=== PATIENT | male | born 1935 | race Caucasian/White ===

== ENCOUNTER 2017-01-03 01:52 | Outpatient (CLI) | payer MEDICARE | END 2017-01-03 01:53 | disposition critical access hospital (66) | LOC: EMS 01:52 | PROVIDERS: ATTEND Surgery | DX: R56.9 Unspecified convulsions (principal) | CPT/HCPCS: A0425; A0427 ==

== ENCOUNTER 2017-01-03 02:15 | Emergency (ER) | payer MEDICARE ==
[2017-01-03] MEDS ORDERED: levETIRAcetam INJ 1,000 MG in SODIUM CHLORIDE 0.9% 100ML 100 ML IV STA (02:50)
[2017-01-03 02:59] LABS: BASOPHILS # (AUTO) 0.1 10^3/uL (0.0-0.1); BASOPHILS % (AUTO) 0.8 %; EOSINOPHILS # (AUTO) 0.3 10^3/uL (0.0-0.7); EOSINOPHILS % (AUTO) 3.5 %; HCT - HEMATOCRIT 37.3 % (42.0-52.0); HGB - HEMOGLOBIN 12.7 g/dL (14.0-18.0); LYMPHOCYTES % (AUTO) 20.2 %; MEAN CORPUSCULAR HEMOGLOBIN 30.4 pg (27.0-31.0); MEAN CORPUSCULAR VOLUME 89.6 fL (80.0-94.0); MONOCYTES # (AUTO) 0.7 10^3/uL (0.0-1.0); NEUTROPHILS # (AUTO) 6.9 10^3/uL (1.5-6.6); NEUTROPHILS % (AUTO) 68.5 %; RED BLOOD COUNT 4.16 10^6/uL (4.70-6.10); RED CELL DISTRIBUTION WIDTH 13.4 % (12.0-15.0); UNCORRECTED WHITE BLOOD COUNT 10.1 x10^3/uL; WHITE BLOOD COUNT 10.1 x10^3/uL (4.8-10.8)
[2017-01-03 03:13] LABS: ALBUMIN/GLOBULIN RATIO 1.3 (1.0-2.2); BILIRUBIN,TOTAL 0.3 mg/dL (0.2-1.0); CREATININE 1.7 mg/dL (0.6-1.2); POTASSIUM 3.9 mmol/L (3.5-5.0); TOTAL PROTEIN 6.6 g/dL (6.7-8.2)
--- NOTE | 2017-01-03 04:01 | CT Preliminary Report ---
Exam: CT Head W/O IMPRESSION: 1. No acute intracranial process. 2. 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 [facility] SITE ID: [id number]
--- NOTE | 2017-01-03 04:04 | CT Report ---
EXAM: CT HEAD EXAM DATE: 01/03/2017 03:48 AM. CLINICAL HISTORY: Breakthrough seizures, history of traumatic brain injury. COMPARISON: None. TECHNIQUE: Multiaxial CT images were obtained from the foramen magnum to the vertex. IV contrast: Non e. Reformats: Coronal. In accordance with CT protocol optimization, one or more of the following dose reduction techniques w ere utilized for this exam: automated exposure control, adjustment of mA and/or KV based on patient s ize, or use of iterative reconstructive technique. FINDINGS: Parenchyma: Anterior left temporal encephalomalacia is present, likely reflecting sequelae from prior trauma. No intraparenchymal hemorrhage. No evidence of mass, midline shift, or CT findings of acute infarction. Mares-white differentiation is distinct elsewhere in the brain. Extraaxial Spaces: No acute subdural or epidural collections identified. Ventricles: The ventricles and cortical sulci are mildly enlarged, consistent with age-related tissue loss. Sinuses: Post surgical changes from cataract extractions are noted in the globes. The paranasal and m astoid sinuses are unremarkable. Bones: Left-sided craniotomy changes are noted. Other: Mild intracranial atherosclerosis is noted. IMPRESSION: 1. No acute intracranial process. 2. 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 [facility] Referring Provider Line: [phone] SITE ID: [id number]
--- NOTE | 2017-01-03 04:23 | ED Physician Documentation ---
PD HPI SEIZURE - Stated complaint Stated Complaint: SZ - Chief complaint Chief Complaint: Neuro - History obtained from History obtained from: Patient, Family, EMS - History of Present Illness Timing - onset: Today Witnessed: Witnessed Number of seizures: Single, Lasted minutes (10-15) Description of seizure activity: Generalized, Tonic clonic Injury during seizure: Bit tongue History of seizures: Known seizure disorder, Prior TBI Contributing factors: Changed meds Treatment [employer]: Valium Similar symptoms before: Work up / diagnostics, Treatment Recently seen: Not recently seen - Additional information Additional information: Patient is an 81 year old male with a history of seizure disorder and tbi who is presenting to the emergency department for seizures. According to patient and family patient had been on keppra 500mg bid, but since he had not had a seizure in a while they had been decreasing his dose to sometime 1 pill a day, sometime half pill. patient had a seizure this evening when he wouldn't wear his cpap. patient was post ictal after the seizure patient bit his tongue and did have urinary incontinence. Patient was treated with valium by ems. Upon initial evaluation in the emergency department patient was awake and alert, slightly post ictal but denying any complaints. Review of Systems Constitutional: denies: Fever, Chills Eyes: denies: Loss of vision, Photophobia Ears: denies: Ear pain, Drainage/discharge Nose: denies: Rhinorrhea / runny nose, Congestion Throat: denies: Dental pain / toothache, Sore throat Cardiac: denies: Chest pain / pressure GI: denies: Nausea, Vomiting : reports: Incontinent Skin: denies: Rash, Lesions, Abrasion (s) Musculoskeletal: denies: Neck pain, Back pain Neurologic: reports: Seizure Psychiatric: denies: Depressed Immunocompromised: denies: Immunocompromised PD PAST MEDICAL HISTORY - Past Medical History Past Medical History: Yes Cardiovascular: None Respiratory: None Neuro: Seizure disorder Endocrine/Autoimmune: None GI: GERD : Benign prostate hypertrophy HEENT: None Psych: None Musculoskeletal: None Derm: None - Past Surgical History Past Surgical History: Yes General: Cholecystectomy - Present Medications Home Medications: Ambulatory Orders Medication Instructions Recorded Confirmed Lisinopril 5 mg ORAL DAILY 01/03/17 01/03/17 Omeprazole [PriLOSEC] 20 mg ORAL BID 01/03/17 01/03/17 Triamterene/Hydrochlorothiazid 37.5 mg ORAL DAILY 01/03/17 01/03/17 [Triamterene-Hctz 37.5-25 mg Tb] levETIRAcetam [Keppra] 500 mg ORAL BID 01/03/17 01/03/17 - Allergies Allergies/Adverse Reactions: Allergies Allergy/AdvReac Type Severity Reaction Status Date / Time No Known Drug Allergies Allergy Verified 01/03/17 02:30 - Social History Does the pt smoke?: No Smoking Status: Former smoker Does the pt drink ETOH?: No Does the pt have substance abuse?: No - Immunizations Immunizations are current?: Yes - POLST Patient has POLST: No PD ED PE NORMAL - Vitals Vital signs reviewed: Yes - General General: Alert and oriented X 3, No acute distress - HEENT HEENT: Moist mucous membranes - Neck Neck: Supple, no meningeal sign - Cardiac Cardiac: RRR, No murmur - Respiratory Respiratory: No respiratory distress - Abdomen Abdomen: Soft, Non tender, Non distended - Derm Derm: Normal color - Extremities Extremities: No deformity, No tenderness to palpate, Normal ROM s pain - Neuro Neuro: Alert and oriented X 3, No motor deficit, No sensory deficit, Normal speech - Psych Psych: Normal mood, Normal affect PD ED PE EXPANDED - HEENT HEENT: Tongue laceration (0.5 mm tongue laceration), Other (three day old healing lip laceration) Results - Vitals Vitals: Vital Signs - 24 hr 01/03/17 01/03/17 02:16 03:04 Temperature 36.4 C L Heart Rate 64 61 Respiratory 14 17 Rate Blood Pressure 126/53 L 131/67 H O2 Saturation 95 99 Oxygen O2 Source Room air - Labs Labs: Laboratory Tests 01/03/17 01/03/17 02:50 02:50 WBC 10.1 RBC 4.16 L Hgb 12.7 L Hct 37.3 L MCV 89.6 MCH 30.4 MCHC 34.0 RDW 13.4 Plt Count 244 MPV 8.0 Neut # 6.9 H Lymph # 2.0 Williams # 0.7 Eos # 0.3 Baso # 0.1 Absolute Nucleated RBC 0.00 Nucleated RBCs 0.0 Sodium 140 Potassium 3.9 Chloride 108 Carbon Dioxide 25 Anion Gap 7.0 BUN 36 H Creatinine 1.7 H Estimated GFR (MDRD) 39 L Glucose 134 H Calcium 10.0 Total Bilirubin 0.3 AST 22 ALT 16 Alkaline Phosphatase 77 Total Protein 6.6 L Albumin 3.7 Globulin 2.9 Albumin/Globulin Ratio 1.3 Lipase 48 - Rads (name of study) ct head Radiology: Final report received (no acute findings) PD MEDICAL DECISION MAKING - ED course Complexity details: reviewed old records, reviewed results, re-evaluated patient , considered differential, d/w patient, d/w family ED course: Patient was seen and examined at bedside. IV access was gained and labs were drawn. imaging was ordered. Patient was loaded with keppra 1000mg. Patient's diagnostics, including head CT showed no major abnormalities. Patient's lip lac was too old to repair and and tongue laceration did not need to be sutured. Upon discharge patient was awake, alert feeling better and asking to go home. Departure - Departure Disposition: 01 Home, Self Care Clinical Impression: Seizure Condition: Good Instructions: Epilepsy Dc Follow-Up: primary,care provider [Other] - Tomorrow Comments: Your diagnostics today were within normal limits. You should take keppra 500mg twice a day. You should call your neurologist today to schedule a follow up appointment. You may return to the emergency department at any time for new, worsening or uncontrollable symptoms.
[2017-01-03 04:32] VITALS: BP 129/66
== END 2017-01-03 04:41 | disposition home or self-care (01) ==
LOC: EDUNIT# → ED 02:15
DX: R56.9 Unspecified convulsions (principal); S01.512A Laceration without foreign body of oral cavity, initial encounter; X58.XXXA Exposure to other specified factors, initial encounter; Z87.820 Personal history of traumatic brain injury; Z87.891 Personal history of nicotine dependence
CPT/HCPCS: 36415; 41250; 70450; 80053; 82550; 83690; 85025; 96365; 99284